=== PATIENT | female | born 1975 | race Caucasian/White ===

== ENCOUNTER 2017-10-06 03:56 | Emergency (ER) | payer OTHER ==
[~2017-10-06 03:56] MED LIST: BENAZEPRIL20 MG PO; DIL100 PO; DILANTIN100 M1 PO; DULCOLAX; FENOFIBRATE160 MG PO; GLIPIZIDE5 PO; METFORMIN500 MG PO; PERICOLACE; PRI20 PO; SIMVASTATIN20 MG PO; [UNRECOGNIZED DRUG - OTHER] PO
[2017-10-06 04:46] LABS: BASOPHIL % 0.5 % (0-2); PLATELET COUNT 270 x10^3mcL (130-400); RED CELL DISTRIBUTION WIDTH 12.1 % (11.5-14.5)
[2017-10-06 05:02] LABS: CALCIUM 9.1 mg/dL (8.5-10.1); CARBON DIOXIDE 21.4 mmol/L (21-32); CHLORIDE SERUM 98 mmol/L (98-107); GFR1 > 60 mL/min; GLUCOSE SERUM 259 mg/dL (74-106); POTASSIUM SERUM 3.8 mmol/L (3.5-5.1); SODIUM SERUM 137 mmol/L (136-145)
[2017-10-06 05:06] LABS: ALBUMIN 3.7 g/dL (3.4-5.0); ALKALINE PHOSPHATASE 88 U/L (46-116); ALT/SGPT 39 U/L (14-59); AST/SGOT 33 U/L (15-37); BILIRUBIN TOTAL 0.2 mg/dL (0.20-1.00)
[2017-10-06 05:07] LABS: TOTAL PROTEIN, SERUM 8.3 g/dL (6.4-8.2)
[2017-10-06 06:37] LABS: microscopic required? NO
[2017-10-06 07:00] LABS: urine erythrocyte NEGATIVE (NEGATIVE)
[2017-10-06 09:22] VITALS: BP 117/83
== END 2017-10-06 09:20 | disposition home or self-care (01) ==
LOC: ED 03:56
PROVIDERS: Emergency Medicine
DX: G40.409 Other generalized epilepsy and epileptic syndromes, not intractable, without status epilepticus (principal); I10 Essential (primary) hypertension; E11.9 Type 2 diabetes mellitus without complications; F79 Unspecified intellectual disabilities; R05 Cough; R09.89 Other specified symptoms and signs involving the circulatory and respiratory systems
CPT/HCPCS: 36600; J1165; J2405; J7050; Q0092

== ENCOUNTER 2018-07-16 14:19 | Emergency (ER) | payer OTHER ==
[~2018-07-16] VITALS: Ht 152.4 cm; Wt 70.3 kg
[2018-07-16 14:23] VITALS: Ht 152.4 cm; Wt 70.3 kg
[2018-07-16 15:01] VITALS: BP 145/99
== END 2018-07-16 15:01 | disposition home or self-care (01) ==
LOC: ED 14:19
DX: R56.9 Unspecified convulsions (principal); I10 Essential (primary) hypertension; E11.9 Type 2 diabetes mellitus without complications; Z90.49 Acquired absence of other specified parts of digestive tract; Z79.84 Long term (current) use of oral hypoglycemic drugs; Z79.899 Other long term (current) drug therapy
CPT/HCPCS: Q0162

== ENCOUNTER 2018-08-23 00:50 | Emergency (ER) | payer OTHER ==
[~2018-08-23] VITALS: Ht 152.4 cm; Wt 68.0 kg
[2018-08-23 01:02] VITALS: Ht 152.4 cm; Wt 68.0 kg
[2018-08-23 01:48] LABS: BASOPHIL % 0.6 % (0-2); PLATELET COUNT 300 x10^3mcL (130-400); RED CELL DISTRIBUTION WIDTH 11.8 % (11.5-14.5)
[2018-08-23 01:57] LABS: CALCIUM 9.3 mg/dL (8.5-10.1); CARBON DIOXIDE 26.4 mmol/L (21-32); CHLORIDE SERUM 95 mmol/L (98-107); CREATININE SERUM 0.8 mg/dL (0.6-1.0); GFR1 > 60 mL/min; GLUCOSE SERUM 210 mg/dL (74-106); POTASSIUM SERUM 4.5 mmol/L (3.5-5.1); SODIUM SERUM 132 mmol/L (136-145)
[2018-08-23 02:02] LABS: ALBUMIN 4.1 g/dL (3.4-5.0); ALKALINE PHOSPHATASE 90 U/L (46-116); ALT/SGPT 49 U/L (14-59); AST/SGOT 41 U/L (15-37); BILIRUBIN TOTAL 0.24 mg/dL (0.20-1.00); LIPASE 237 IU/L (73-393)
[2018-08-23 02:03] LABS: TOTAL PROTEIN, SERUM 8.8 g/dL (6.4-8.2)
[2018-08-23 04:59] LABS: UA SPECIFIC GRAVITY 1.015 (1.005-1.035); microscopic required? YES; urine erythrocyte NEGATIVE (NEGATIVE)
[2018-08-23 05:08] VITALS: BP 147/70
== END 2018-08-23 05:09 | disposition home or self-care (01) ==
LOC: ED 00:50
PROVIDERS: Emergency Medicine
DX: N39.0 Urinary tract infection, site not specified (principal); I10 Essential (primary) hypertension; E11.9 Type 2 diabetes mellitus without complications; E78.00 Pure hypercholesterolemia, unspecified; Z90.49 Acquired absence of other specified parts of digestive tract
CPT/HCPCS: J1885; J2270; J2405; J7030

== ENCOUNTER 2018-11-25 08:50 | Emergency (ER) | payer OTHER ==
[~2018-11-25] VITALS: Ht 152.4 cm; Wt 66.7 kg
[2018-11-25 09:01] VITALS: Ht 152.4 cm; Wt 66.7 kg
[2018-11-25] MEDS ORDERED: DILANTIN100 MG PO (09:21)
[2018-11-25] MEDS ORDERED: GOOD SENSE OMEP20 MG (09:21)
[2018-11-25] MEDS ORDERED: SIMVASTATIN20 M1 (09:22)
[2018-11-25] MEDS ORDERED: BENAZEPRIL HYDR20 M1 (09:22)
[2018-11-25] MEDS ORDERED: GLIPIZIDE5 M2 (09:23)
[2018-11-25] MEDS ORDERED: FENOFIBRATE160 M1 (09:23)
[2018-11-25 10:34] LABS: UA SPECIFIC GRAVITY >=1.030 (1.005-1.035); microscopic required? YES; urine erythrocyte NEGATIVE (NEGATIVE)
[2018-11-25 10:36] LABS: BASOPHIL % 0.3 % (0-2); PLATELET COUNT 252 x10^3mcL (130-400); RED CELL DISTRIBUTION WIDTH 12.6 % (11.5-14.5)
[2018-11-25 10:37] LABS: CALCIUM 9.1 mg/dL (8.5-10.1); CARBON DIOXIDE 24.9 mmol/L (21-32); CHLORIDE SERUM 100 mmol/L (98-107); CREATININE SERUM 0.9 mg/dL (0.6-1.0); GFR1 > 60 mL/min; GLUCOSE SERUM 285 mg/dL (74-106); POTASSIUM SERUM 4.6 mmol/L (3.5-5.1); SODIUM SERUM 136 mmol/L (136-145)
[2018-11-25 10:41] LABS: ALBUMIN 3.8 g/dL (3.4-5.0); ALKALINE PHOSPHATASE 91 U/L (46-116); ALT/SGPT 36 U/L (14-59); AST/SGOT 29 U/L (15-37); BILIRUBIN TOTAL 0.1 mg/dL (0.20-1.00); MAGNESIUM 1.4 mg/dL (1.8-2.4); TOTAL PROTEIN, SERUM 7.8 g/dL (6.4-8.2)
[2018-11-25 10:51] LABS: AMPHETAMINE QUAL UR NONE DETECTED (See below)
[2018-11-25 13:43] VITALS: BP 115/71
== END 2018-11-25 13:50 | disposition home or self-care (01) ==
LOC: ED 08:50
PROVIDERS: Emergency Medicine
DX: G40.409 Other generalized epilepsy and epileptic syndromes, not intractable, without status epilepticus (principal); F79 Unspecified intellectual disabilities; Q02 Microcephaly; E83.42 Hypomagnesemia; E11.9 Type 2 diabetes mellitus without complications; I10 Essential (primary) hypertension; E78.00 Pure hypercholesterolemia, unspecified
CPT/HCPCS: 82962; G0480; J1165; J7030; J7050

== ENCOUNTER 2019-09-08 01:05 | Emergency (ER) | payer OTHER ==
[~2019-09-08] VITALS: Ht 152.4 cm; Wt 67.1 kg
[~2019-09-08 01:05] MED LIST changes: +BENAZEPRIL HYDR20 M1; +DILANTIN100 MG PO; +FENOFIBRATE160 M1; +GLIPIZIDE5 M2; +GOOD SENSE OMEP20 MG; +SIMVASTATIN20 M1
[2019-09-08 01:08] VITALS: Ht 152.4 cm; Wt 67.1 kg
[2019-09-08 02:50] LABS: microscopic required? YES; urine erythrocyte NEGATIVE (NEGATIVE)
[2019-09-08 03:02] VITALS: BP 123/78
== END 2019-09-08 03:39 | disposition home or self-care (01) ==
LOC: ED 01:05
PROVIDERS: Emergency Medicine
DX: N39.0 Urinary tract infection, site not specified (principal); J06.9 Acute upper respiratory infection, unspecified; I10 Essential (primary) hypertension; E11.9 Type 2 diabetes mellitus without complications; Z90.89 Acquired absence of other organs
CPT/HCPCS: 87804; Q0092

== ENCOUNTER 2020-01-03 13:27 | Emergency (ER) | payer OTHER ==
[~2020-01-03] VITALS: Ht 160 cm; Wt 66.7 kg
[2020-01-03 13:35] VITALS: Ht 160 cm; Wt 66.7 kg
[2020-01-03 14:19] LABS: BASOPHIL % 0.4 % (0-2); PLATELET COUNT 289 x10^3mcL (130-400); RED CELL DISTRIBUTION WIDTH 12.3 % (11.5-14.5)
[2020-01-03 15:12] LABS: CALCIUM 9.5 mg/dL (8.5-10.1); CARBON DIOXIDE 27.4 mmol/L (21-32); CHLORIDE SERUM 99 mmol/L (98-107); CREATININE SERUM 0.8 mg/dL (0.6-1.0); GFR1 > 60 mL/min; GLUCOSE SERUM 290 mg/dL (74-106); POTASSIUM SERUM 4.2 mmol/L (3.5-5.1); SODIUM SERUM 134 mmol/L (136-145)
[2020-01-03 15:17] LABS: ALBUMIN 4.2 g/dL (3.4-5.0); ALKALINE PHOSPHATASE 140 U/L (46-116); ALT/SGPT 56 U/L (14-59); AST/SGOT 58 U/L (15-37); LIPASE 283 IU/L (73-393)
[2020-01-03 15:33] LABS: TOTAL PROTEIN, SERUM 8.8 g/dL (6.4-8.2)
[2020-01-03 16:25] VITALS: BP 156/90
== END 2020-01-03 16:25 | disposition home or self-care (01) ==
LOC: ED 13:27
PROVIDERS: Emergency Medicine
DX: K29.70 Gastritis, unspecified, without bleeding (principal); I10 Essential (primary) hypertension; E11.9 Type 2 diabetes mellitus without complications; Z98.890 Other specified postprocedural states; Z90.49 Acquired absence of other specified parts of digestive tract; Z90.89 Acquired absence of other organs
CPT/HCPCS: 36415; Q0162

== ENCOUNTER 2020-10-29 20:29 | Emergency (ER) | payer OTHER ==
[~2020-10-29] VITALS: Ht 154.9 cm; Wt 66.7 kg
[2020-10-29 20:37] VITALS: BP 148/88; Ht 154.9 cm; Wt 66.7 kg
[2020-10-29 23:15] LABS: BASOPHIL % 0.3 % (0.2-1.3); PLATELET COUNT 233 x10^3mcL (179-408); RED CELL DISTRIBUTION WIDTH 12.6 % (12.3-17.7)
[2020-10-29 23:22] LABS: ALKALINE PHOSPHATASE 122 U/L (46-116); ALT/SGPT 39 U/L (14-59); AST/SGOT 28 U/L (15-37); BILIRUBIN TOTAL 0.2 mg/dL (0.20-1.00); CALCIUM 9.3 mg/dL (8.5-10.1); CARBON DIOXIDE 27.5 mmol/L (21-32); CHLORIDE SERUM 96 mmol/L (98-107); CREATININE SERUM 0.9 mg/dL (0.6-1.0); GFR1 > 60 mL/min; LIPASE 231 IU/L (73-393); POTASSIUM SERUM 4.3 mmol/L (3.5-5.1); SODIUM SERUM 132 mmol/L (136-145); TOTAL PROTEIN, SERUM 8.4 g/dL (6.4-8.2)
[2020-10-29 23:25] LABS: GLUCOSE SERUM 460 mg/dL (74-106)
== END 2020-10-29 23:35 | disposition home or self-care (01) ==
LOC: ED 20:29
PROVIDERS: Student in an Organized Health Care Education/Training Program
DX: R10.12 Left upper quadrant pain (principal); I10 Essential (primary) hypertension; E11.9 Type 2 diabetes mellitus without complications; Z90.89 Acquired absence of other organs; Z90.49 Acquired absence of other specified parts of digestive tract